=== PATIENT | female | born 1990 | race Caucasian/White ===

== ENCOUNTER 2021-04-04 06:32 | Inpatient (IN) | payer SELFPAY ==
[2021-04-04] MEDS ORDERED: Acetaminophen 325 MG Tab PO PRN ×2 (07:44→18:43)
[2021-04-04] MEDS ORDERED: Sodium Chloride 0.9% 10 ML Syringe FLUSH PRN (07:44)
[2021-04-04] MEDS ORDERED: Nalbuphine 10 MG/1 ML Vial IVPUSH PRN (07:44)
[2021-04-04] MEDS ORDERED: Ondansetron 4 MG/2 ML SDV IVPUSH PRN (07:44)
[2021-04-04] MEDS ORDERED: Oxytocin/Lactated Ringers 10 UNIT/1,000 ML BAG IV SCH ×3 (07:45→18:43)
--- NOTE | 2021-04-04 08:09 | PCM.PREANE ---
Preanesthetic Assessment - Procedure Proposed Procedure: Labor epidural - Anesthesia/Transfusion/Family Hx Anesthesia History: Prior Anesthesia Without Reaction Family History of Anesthesia Reaction: No Transfusion History: No Prior Transfusion(s) Intubation History: Unknown - Review of Systems General: No Symptoms Pulmonary: No Symptoms Cardiovascular: No Symptoms Gastrointestinal: Abdominal Pain (uterine contractions) Neurological: No Symptoms Other: Reports: None - Physical Assessment NPO Status Date: 04/04/21 NPO Status Time: 07:00 Vital Signs: BP 113/73 HR 91 RR 16 97.3 98% RA Height: 1.6 m Weight: 80.739 kg ASA Class: 2 Mental Status: Alert & Oriented x3 Airway Class: Mallampati = 2 Dentition: Reports: Normal Dentition Thyro-Mental Finger Breadths: 3 Mouth Opening Finger Breadths: 3 ROM/Head Extension: Full Lungs: Clear to Auscultation, Normal Respiratory Effort Cardiovascular: Regular Rate, Regular Rhythm, No Murmurs - Allergies Allergies/Adverse Reactions: Allergies Allergy/AdvReac Type Severity Reaction Status Date / Time No Known Allergies Allergy Verified 04/04/21 06:39 - Acknowledgements Anesthesia Type Planned: Epidural Pt an Appropriate Candidate for the Planned Anesthesia: Yes Alternatives and Risks of Anesthesia Discussed w Pt/Guardian: Yes Pt/Guardian Understands and Agrees with Anesthesia Plan: Yes PreAnesthesia Questionnaire HEENT History: Reports: Impaired Vision Cardiovascular History: Reports: None Respiratory History: Reports: None Gastrointestinal History: Reports: GERD Genitourinary History: Reports: None 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: Musculoskeletal History: Reports: None Neurological History: Reports: None Psychiatric History: Reports: None Endocrine/Metabolic History: Reports: Diabetes, Type I Hematologic History: Reports: None Immunologic History: Reports: None Oncologic (Cancer) History: Reports: None Dermatologic History: Reports: None - Past Surgical History HEENT Surgical History: Reports: Oral Surgery - SUBSTANCE USE Tobacco Use Status *Q: Never Tobacco User Tobacco Use Within Last Twelve Months: No Second Hand Smoke Exposure: No Recreational Drug Use History: No - CURRENT (IN HOUSE) MEDS Current Meds: Current Medications Acetaminophen (Acetaminophen 325 Mg Tab) 650 mg PO Q4H PRN PRN Reason: Pain (Mild 1-3) and fever Lactated Ringer's (Ringers, Lactated) 1,000 mls @ 100 mls/hr IV ASDIRECTED ANEESH Oxytocin/Lactated Ringer's (Pitocin In Lr 10 Units/1,000 Ml) 10 unit in 1,000 mls @ 12 mls/hr IV TITRATE ANEESH; Protocol Oxytocin/Lactated Ringer's (Pitocin In Lr 10 Units/1,000 Ml) 10 unit in 1,000 mls @ 100 mls/hr IV .CONTINUOUS ANEESH; Protocol Nalbuphine HCl (Nalbuphine 10 Mg/1 Ml Vial) 10 mg IVPUSH Q2H PRN PRN Reason: Pain Ondansetron HCl (Ondansetron 4 Mg/2 Ml Sdv) 4 mg IVPUSH Q4H PRN PRN Reason: Nausea/Vomiting Sodium Chloride (Sodium Chloride 0.9% 10 Ml Syringe) 10 ml FLUSH ASDIRECTED PRN PRN Reason: Keep Vein Open
[2021-04-04] MEDS ORDERED: ePHEDrine 50 MG/ML SDV IVPUSH PRN (08:15)
[2021-04-04] MEDS ORDERED: fentaNYL 100 MCG/2 ML SDV EPIDUR PRN (08:15)
[2021-04-04] MEDS ORDERED: diphenhydrAMINE 50 MG/ML SDV IVPUSH PRN (08:15)
[2021-04-04] MEDS ORDERED: Bupivacaine/fentaNYL/NS 100 ML Bag EPIDUR PRN (08:15)
[2021-04-04] MEDS: Lactated Ringers 1,000 ML IV SCH ×4 (08:19→12:30)
--- NOTE | 2021-04-04 10:19 | PCM.LDHP ---
L&D History of Present Illness - General Date of Service: 04/04/21 Admit Problem/Dx: Patient Status Order with Admit Dx/Problem 04/04/21 06:38 Patient Status [ADT] Routine 04/04/21 07:45 Patient Status [ADT] Routine Admission Diagnosis/Problem Admission Diagnosis/Problem Source of Information: Patient History Limitations: Reports: No Limitations - History of Present Illness Introduction:: Daria Vargas is a 30-year-old at 40 weeks 5 days (JEREMIAH 03/30/2021) by LMP consistent with anatomy ultrasound who presents with uterine contractions. She reports that she started having contractions at around 2 AM that were about 10 minutes apart and over time they became closer and closer together until at around 6 AM they were about 5 minutes apart. She came into labor and delivery at that time. She states that during the contractions she would have a small amount of vaginal bleeding but no significant bright red bleeding. She denies any leaking of fluid. She reports good movement. Timing/Duration: Reports: gradual onset (Starting at 2 AM), intermittent (Contractions every 5 minutes), getting worse (With more frequent and increased intensity of the contractions throughout the morning) Location, : Reports: Lower back, Pelvic Quality: Reports: Pressure, Throbbing Severity: Severe Pain Score: 8 Worsens with: Reports: None Associated Symptoms: Reports: vaginal bleeding, mild amount. Denies: vaginal discharge, vaginal fluid Present Illness Comments:: Daria Vargas is a 30-year-old at 40 weeks 5 days (JEREMIAH 03/30/2021) by LMP consistent with anatomy ultrasound who presents with uterine contractions and active labor. She has had routine care with Dr. Rain starting at 10 weeks gestational age. Her has been overall uncomplicated. She received Tdap vaccine on 01/04/2021. She received the COVID-19 vaccine on 12-18 and 12/17/2020. 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 Blood type: O+ Antibody screen: Negative First trimester hematocrit/hemoglobin: 39.6%/13.3 on 09/07/2020 Platelets: 293 on 09/07/2020 Rubella status: Immune Hepatitis B surface antigen: Negative RPR: Negative Hepatitis C: Negative HIV: Negative Gonorrhea: Negative Chlamydia: Negative Genetic testing: Normal NIPS genetic screening One hour glucose tolerance test: 85 Second trimester hematocrit/hemoglobin: 38.4%/13.0 on 01/04/2021 Platelets: 227 on 01/04/2021 GBS status: Negative - Related Data Allergies/Adverse Reactions: Allergies Allergy/AdvReac Type Severity Reaction Status Date / Time No Known Allergies Allergy Verified 04/04/21 06:39 Home Medications: Home Meds No122/Iron/Folic Acid [ Multi Tablet] 1 tab PO DAILY 04/04/21 [History] Past Medical History HEENT History: Reports: Impaired Vision Cardiovascular History: Reports: None Respiratory History: Reports: None Gastrointestinal History: Reports: GERD Genitourinary History: Reports: None 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 Para: 0 Musculoskeletal History: Reports: None Neurological History: Reports: None Psychiatric History: Reports: None Endocrine/Metabolic History: Reports: None Hematologic History: Reports: None Immunologic History: Reports: None Oncologic (Cancer) History: Reports: None Dermatologic History: Reports: None - Past Surgical History HEENT Surgical History: Reports: Oral Surgery (wisdom teeth extraction) Social & Family History - Family History Family Medical History: No Pertinent Family History - Tobacco Use Tobacco Use Status *Q: Never Tobacco User Second Hand Smoke Exposure: No - Tobacco Core Measures Tobacco Use/Smoking Within Last 30 Days: No Smokeless Tobacco Use in Last 30 Days: No - Caffeine Use Caffeine Use: Reports: None - Alcohol Use Alcohol Use History: No - Recreational Drug Use Recreational Drug Use: No - Living Situation & Occupation Living situation: Reports: , with Spouse H&P Review of Systems - Review of Systems: Review Of Systems: See Below General: Denies: Fever, Chills, Malaise, Weakness HEENT: Reports: Glasses. Denies: Headaches, Rhinitis, Post Nasal Drip, Sinus Congestion, Sore Throat, Visual Changes Pulmonary: Denies: Shortness of Breath, Wheezing, Pleuritic Chest Pain, Cough Cardiovascular: Denies: Chest Pain, Palpitations, Dyspnea on Exertion, Orthopnea Gastrointestinal: Denies: Abdominal Pain, Constipation, Diarrhea, Nausea, Vomiting Genitourinary: Denies: Dysuria, Frequency, Burning, Pain, Urgency Musculoskeletal: Reports: Back Pain (and hip pain of ) Skin: Denies: Rash, Lesions Psychiatric: Denies: Depression, Anxiety Neurological: Denies: Headache L&D Exam - Exam Exam: See Below - Vital Signs Vital Signs: Last Vital Signs Temp 36.3 C 04/04/21 06:38 Pulse 91 04/04/21 06:38 Resp 16 04/04/21 06:38 BP 113/73 04/04/21 06:38 Pulse Ox 100 04/04/21 06:38 Weight: 80.739 kg - OB Specific Contraction Duration (sec): 60-75 Contraction Frequency (min): 3-5 Contraction Intensity: Strong Movement: Active Heart Tones: Present Heart Tones per Min: 125 (+15 x 15 accelerations, no decelerations) Heart Rate (FHR) Variability: Moderate (6-25 bpm) Presentation: Vertex Estimated Weight: 7.5-8 lbs by Isacc - Bueno Score Bueno Score Cervix Position: Anterior Bueno Score Consistency: Soft Bueno Score Effacement: >80% (100%) Bueno Score Dilation: > 5 cm (8-9 cm) Bueno Score Infant's Station: +1, +2 (+2) Bueno Score Total: 13 - Exam General: Alert, Oriented HEENT: Conjunctiva Clear, EOMI Neck: Supple, Trachea Midline Lungs: Clear to Auscultation, Normal Respiratory Effort Cardiovascular: Regular Rate, Regular Rhythm GI/Abdominal Exam: Soft, Non-Tender, No Distention, Other (Gravid). No: Guarding, Rigid, Rebound Genitourinary: Normal external exam, Other (Artificial rupture of membranes with small amount of clear fluid) Extremities: Normal Inspection, No Pedal Edema Skin: Warm, Dry, Intact Psychiatric: Alert, Normal Affect, Normal Mood - Patient Data Lab Results Last 24 hrs: Laboratory Results - last 24 hr 04/04/21 04/04/21 Range/Units 07:12 07:12 WBC 12.63 H (3.98-10.04) K/mm3 RBC 4.28 (3.98-5.22) M/mm3 Hgb 12.6 (11.2-15.7) gm/dl Hct 37.9 (34.1-44.9) % MCV 88.6 (79.4-94.8) fl MCH 29.4 (25.6-32.2) pg MCHC 33.2 (32.2-35.5) g/dl RDW Std Deviation 46.3 (36.4-46.3) fL Plt Count 221 (182-369) K/mm3 MPV 9.7 (9.4-12.3) fl Neut % (Auto) 84.7 H (34.0-71.1) % Lymph % (Auto) 8.4 L (19.3-51.7) % [place] % (Auto) 5.8 (4.7-12.5) % Eos % (Auto) 0.1 L (0.7-5.8) Baso % (Auto) 0.2 (0.1-1.2) % Neut # (Auto) 10.71 H (1.56-6.13) K/mm3 Lymph # (Auto) 1.06 L (1.18-3.74) K/mm3 [place] # (Auto) 0.73 H (0.24-0.36) K/mm3 Eos # (Auto) 0.01 L (0.04-0.36) K/mm3 Baso # (Auto) 0.02 (0.01-0.08) K/mm3 SARS-CoV-2 RNA (MAIKOL) Negative (NEGATIVE) Result Diagrams: 04/04/21 07:12 - Problem List (1) 40 weeks gestation of SNOMED Code(s): 23812275 ICD Code: Z3A.40 - 40 WEEKS GESTATION OF Status: Acute Current Visit: Yes Problem List Initiated/Reviewed/Updated: Yes Orders Last 24hrs: Active Orders 24 hr Category Date Time Status Patient Status [ADT] Routine ADT 04/04/21 07:45 Active Activity as Tolerated [RC] PFP Care 04/04/21 07:45 Active Communication Order [RC] ASDIRECTED Care 04/04/21 07:45 Active Heart Tones [RC] ASDIRECTED Care 04/04/21 07:45 Active Notify Provider [RC] ASDIRECTED Care 04/04/21 08:15 Active Notify Provider [RC] PFP Care 04/04/21 07:45 Active Notify Provider [RC] PRN Care 04/04/21 07:45 Active Peripheral IV Care [RC] . DIRECTED Care 04/04/21 07:45 Active Pump Management, Intrathecal [RC] ASDIRECTED Care 04/04/21 07:46 Active Urinary Catheter Assessment [RC] ASDIRECTED Care 04/04/21 07:44 Active Vital Signs [RC] PER UNIT ROUTINE Care 04/04/21 06:38 Active Regular Diet [DIET] Diet 04/04/21 Breakfast Active RAPID PLASMA REAGIN,RPR [CHEM] Routine Lab 04/04/21 07:12 Received Acetaminophen [TylenoL] Med 04/04/21 07:44 Active 650 mg PO Q4H PRN Bupivacaine/fentaNYL/NS [fentaNYL/Bupivacaine/NS 2 MCG- Med 04/04/21 08:15 Active 0.125% 100 ML] 100 ml EPIDUR ASDIRECTED PRN Lactated Ringers [Ringers, Lactated] 1,000 ml Med 04/04/21 07:45 Active IV ASDIRECTED Nalbuphine [Nubain] Med 04/04/21 07:44 Active 10 mg IVPUSH Q2H PRN Ondansetron [Zofran] Med 04/04/21 07:44 Active 4 mg IVPUSH Q4H PRN Oxytocin/Lactated Ringers [Pitocin in LR 10 Units/1,000 Med 04/04/21 07:45 Active ML] 10 unit in 1,000 ml IV .CONTINUOUS Oxytocin/Lactated Ringers [Pitocin in LR 10 Units/1,000 Med 04/04/21 07:45 Active ML] 10 unit in 1,000 ml IV TITRATE Sodium Chloride 0.9% [Saline Flush] Med 04/04/21 07:44 Active 10 ml FLUSH ASDIRECTED PRN diphenhydrAMINE [Benadryl] Med 04/04/21 08:15 Active 25 mg IVPUSH Q6H PRN ePHEDrine [ePHEDrine sulfate] Med 04/04/21 08:15 Active 5 mg IVPUSH ASDIRECTED PRN fentaNYL [Sublimaze] Med 04/04/21 08:15 Active 100 mcg EPIDUR Q3H PRN Electronic Heart Tones Ext w TOCO [WOMSER] Oth 04/04/21 07:45 Ordered Routine Electronic Heart Tones Internal [WOMSER] Per Unit Oth 04/04/21 07:45 Ordered Routine Peripheral IV Insertion Adult [OM.PC] Routine Oth 04/04/21 07:45 Ordered Resuscitation Status Routine Resus Stat 04/04/21 06:38 Ordered Medication Orders Acetaminophen (Acetaminophen 325 Mg Tab) 650 mg PO Q4H PRN PRN Reason: Pain (Mild 1-3) and fever Diphenhydramine HCl (Diphenhydramine 50 Mg/Ml Sdv) 25 mg IVPUSH Q6H PRN PRN Reason: pruritis Ephedrine Sulfate (Ephedrine 50 Mg/Ml Sdv) 5 mg IVPUSH ASDIRECTED PRN PRN Reason: Hypotension Fentanyl (Fentanyl 100 Mcg/2 Ml Sdv) 100 mcg EPIDUR Q3H PRN PRN Reason: Pain Last Admin: 04/04/21 08:23 Dose: 100 mcg Documented by: SOFIA Fentanyl/Bupivacaine HCl (Bupivacaine/Fentanyl/Ns 100 Ml Bag) 100 ml EPIDUR ASDIRECTED PRN PRN Reason: Pain Last Admin: 04/04/21 08:23 Dose: 100 ml Documented by: SOFIA Lactated Ringer's (Ringers, Lactated) 1,000 mls @ 100 mls/hr IV ASDIRECTED ANEESH Last Admin: 04/04/21 08:24 Dose: 100 mls/hr Documented by: Infusion: 04/04/21 08:24 Dose: 100 mls/hr Documented by: Admin: 04/04/21 08:19 Dose: 100 mls/hr Documented by: SOFIA Oxytocin/Lactated Ringer's (Pitocin In Lr 10 Units/1,000 Ml) 10 unit in 1,000 mls @ 12 mls/hr IV TITRATE ANEESH; Protocol Oxytocin/Lactated Ringer's (Pitocin In Lr 10 Units/1,000 Ml) 10 unit in 1,000 mls @ 100 mls/hr IV .CONTINUOUS ANEESH; Protocol Nalbuphine HCl (Nalbuphine 10 Mg/1 Ml Vial) 10 mg IVPUSH Q2H PRN PRN Reason: Pain Ondansetron HCl (Ondansetron 4 Mg/2 Ml Sdv) 4 mg IVPUSH Q4H PRN PRN Reason: Nausea/Vomiting Sodium Chloride (Sodium Chloride 0.9% 10 Ml Syringe) 10 ml FLUSH ASDIRECTED PRN PRN Reason: Keep Vein Open Assessment/Plan Comment:: Daria Vargas is a 30-year-old G1, P0 at 40 weeks 5 days (JEREMIAH 03/30/2021) with active labor Patient had artificial rupture of membranes with [place] with return of small amount of clear fluid. Mother and infant tolerated procedure without difficulty. Refer to observation for spontaneous labor with cervical change Continuous monitoring Place IV and have Lactated Ringer's at 125 ml/hr May have small amounts of regular diet Activity as tolerated Patient with epidural in place and providing good anesthesia Plans to breast-feed after delivery Anticipate vaginal delivery unless otherwise indicated Pawel Schmidt MD 10:38 AM 04/04/2021
[2021-04-04] MEDS ORDERED: Benzocaine/Menthol 20%-0.5% Spray 78 GM Cannister TOP PRN (18:43)
[2021-04-04] MEDS ORDERED: Magnesium Hydroxide 400 MG/5 ML Susp 30 ML Cup PO PRN (18:43)
[2021-04-04] MEDS ORDERED: Hydrocortisone Acetate 25 MG Supp RECTAL PRN (18:43)
[2021-04-04] MEDS ORDERED: Bupivacaine 0.25% 10 ML SDV ONE (19:00)
--- NOTE | 2021-04-04 19:21 | PCM.DEL ---
L & D Note - General Info Date of Service: 04/04/21 Mother's Due Date: 03/30/21 - Delivery Note Labor: Spontaneous, Augmented by ARM, Augmented by Oxytocin Infant Delivery Method: Spontaneous Vaginal Delivery-Single Presentation: Left Occiput Anterior (LISA) Nuchal Cord: None Prep: Povidone-Iodine (Betadine Anesthesia Type: Epidural Amniotic Fluid Description: Clear Episiotomy Type: None Laceration: 3rd Degree (partial, midline, repaired with 2 figure of eight sutures with 2-0 Vicryl Rapide and 3-0 Vicryl), Labial (left medial labia minora, repaired with 4-0 Vicryl) Suture type: Vicryl Suture size: 3-0 Placenta: Intact, Spontaneous Cord: 3 Vessels Estimated Blood Loss: 500 Resuscitation Needed: Yes : Suctioned, Bulb Syringe, Stimulated, Warmed, [place] Used, Warmer Used Provider: Jennifer Rain Score 1 min: 8 Score 5 min: 9 Second Stage Interventions: Reports: Pushing Effectively, Pushing, Right Side, Pushing, Squatting, Pushing, Stirrups/Leg Supports Delivery Comments (Free Text/Narrative):: Stage I: Daria Vargas was admitted for active labor. On admission her cervix was dilated to 7 cm. She was GBS negative. She was given an epidural for anesthesia. She had artificial rupture of membranes with small amount of clear fluid. She was started on Pitocin for augmentation of labor after her contractions had slowed significantly. She progressed to complete and pushing. Stage II: On 04/04/2021 she had a normal vaginal delivery of a live female at 17:22. Apgars of 8 & 9. Weight of 4210 g (9 lbs 4.5 oz). Length of 21.5 inches. There was no nuchal cord. was delivered in LISA position. The cord was doubly clamped and cut by father the at approximately 60 seconds of life. Infant was placed on mother's abdomen and then taken to the warmer for further resuscitation. Stage III: She had a spontaneous delivery of an intact placenta in [place] presentation. Three vessel cord. She was given pitocin and fundal massage. She had a partial third-degree midline perineal laceration. This was repaired with 2 [id number] sutures using 2-0 Vicryl Rapide in the superior and anterior portions of the external anal sphincter muscle capsule. The remainder of the laceration was repaired with 3-0 Vicryl. She had a left medial labia minora laceration that was repaired with 4-0 Vicryl. Mom and baby were stable to recovery. EBL of 500 mL. Pawel Schmidt MD 7:21 PM 04/04/2021 - General Info Date of Service: 04/04/21 - Patient Data Vitals - Most Recent: Last Vital Signs Temp 36.3 C 04/04/21 06:38 Pulse 91 04/04/21 06:38 Resp 16 04/04/21 06:38 BP 113/73 04/04/21 06:38 Pulse Ox 100 04/04/21 06:38 Weight - Most Recent: 80.739 kg I&O - Last 24 Hours: Intake & Output 04/04/21 04/04/21 04/04/21 06:59 14:59 22:59 Intake Total 1000 3000 Balance 1000 3000 Lab Results Last 24 Hours: Laboratory Results - last 24 hr 04/04/21 04/04/21 Range/Units 07:12 07:12 WBC 12.63 H (3.98-10.04) K/mm3 RBC 4.28 (3.98-5.22) M/mm3 Hgb 12.6 (11.2-15.7) gm/dl Hct 37.9 (34.1-44.9) % MCV 88.6 (79.4-94.8) fl MCH 29.4 (25.6-32.2) pg MCHC 33.2 (32.2-35.5) g/dl RDW Std Deviation 46.3 (36.4-46.3) fL Plt Count 221 (182-369) K/mm3 MPV 9.7 (9.4-12.3) fl Neut % (Auto) 84.7 H (34.0-71.1) % Lymph % (Auto) 8.4 L (19.3-51.7) % [place] % (Auto) 5.8 (4.7-12.5) % Eos % (Auto) 0.1 L (0.7-5.8) Baso % (Auto) 0.2 (0.1-1.2) % Neut # (Auto) 10.71 H (1.56-6.13) K/mm3 Lymph # (Auto) 1.06 L (1.18-3.74) K/mm3 [place] # (Auto) 0.73 H (0.24-0.36) K/mm3 Eos # (Auto) 0.01 L (0.04-0.36) K/mm3 Baso # (Auto) 0.02 (0.01-0.08) K/mm3 SARS-CoV-2 RNA (MAIKOL) Negative (NEGATIVE) Med Orders - Current: Current Medications Acetaminophen (Acetaminophen 325 Mg Tab) 650 mg PO Q6H PRN PRN Reason: mild pain or fever Benzocaine/Menthol (Benzocaine/Menthol 20%-0.5% Saline 78 Gm Cannister) 0 gm TOP ASDIRECTED PRN PRN Reason: Perineal Comfort Measure Docusate Sodium (Docusate Sodium 100 Mg Cap) 100 mg PO BID ANEESH Hydrocortisone Acetate (Hydrocortisone Acetate 25 Mg Supp) 25 mg RECTAL BID PRN PRN Reason: Hemorrhoid pain Oxytocin/Lactated Ringer's (Pitocin In Lr 10 Units/1,000 Ml) 10 unit in 1,000 mls @ 100 mls/hr IV TITRATE ANEESH; Protocol Ibuprofen (Ibuprofen 600 Mg Tab) 600 mg PO Q6H PRN PRN Reason: Mild pain or fever Magnesium Hydroxide (Magnesium Hydroxide 400 Mg/5 Ml Susp 30 Ml Cup) 30 ml PO BEDTIME PRN PRN Reason: Constipation Prenat Multivit/[place]/Iron/Folic Ac ( Multivitamin With Calcium/Folic Acid/Iron Tab) 1 each PO DAILY [facility] Witch Benita (Witch Benita Medicated Pads 40/Jar) 1 pad TOP ASDIRECTED PRN PRN Reason: Perineal Comfort Measure Discontinued Medications Acetaminophen (Acetaminophen 325 Mg Tab) 650 mg PO Q4H PRN PRN Reason: Pain (Mild 1-3) and fever Diphenhydramine HCl (Diphenhydramine 50 Mg/Ml Sdv) 25 mg IVPUSH Q6H PRN PRN Reason: pruritis Ephedrine Sulfate (Ephedrine 50 Mg/Ml Sdv) 5 mg IVPUSH ASDIRECTED PRN PRN Reason: Hypotension Fentanyl (Fentanyl 100 Mcg/2 Ml Sdv) 100 mcg EPIDUR Q3H PRN PRN Reason: Pain Last Admin: 04/04/21 08:23 Dose: 100 mcg Documented by: Fentanyl/Bupivacaine HCl (Bupivacaine/Fentanyl/Ns 100 Ml Bag) 100 ml EPIDUR ASDIRECTED PRN PRN Reason: Pain Last Admin: 04/04/21 08:23 Dose: 100 ml Documented by: Lactated Ringer's (Ringers, Lactated) 1,000 mls @ 100 mls/hr IV ASDIRECTED ANEESH Last Admin: 04/04/21 12:30 Dose: 100 mls/hr Documented by: Oxytocin/Lactated Ringer's (Pitocin In Lr 10 Units/1,000 Ml) 10 unit in 1,000 mls @ 12 mls/hr IV TITRATE ANEESH; Protocol Last Admin: 04/04/21 12:26 Dose: 2 munits/min, 12 mls/hr Documented by: Oxytocin/Lactated Ringer's (Pitocin In Lr 10 Units/1,000 Ml) 10 unit in 1,000 mls @ 100 mls/hr IV .CONTINUOUS ANEESH; Protocol Nalbuphine HCl (Nalbuphine 10 Mg/1 Ml Vial) 10 mg IVPUSH Q2H PRN PRN Reason: Pain Ondansetron HCl (Ondansetron 4 Mg/2 Ml Sdv) 4 mg IVPUSH Q4H PRN PRN Reason: Nausea/Vomiting Sodium Chloride (Sodium Chloride 0.9% 10 Ml Syringe) 10 ml FLUSH ASDIRECTED PRN PRN Reason: Keep Vein Open - Exam Urinary Catheter Total Time: 0Days 0Hours - Problem List & Annotations (1) 40 weeks gestation of SNOMED Code(s): 14856024 Code(s): Z3A.40 - 40 WEEKS GESTATION OF Status: Acute Current Visit: Yes (2) Vaginal delivery SNOMED Code(s): 452560995 Code(s): O80 - ENCOUNTER FOR FULL-TERM UNCOMPLICATED DELIVERY Status: Acute Current Visit: Yes (3) Third degree laceration of perineum, type 3a SNOMED Code(s): 047469291 Code(s): O70.21 - THIRD DEGREE PERINEAL LACERATION DURING DELIVERY, IIIA Status: Acute Current Visit: Yes (4) Obstetric labial laceration, delivered, current hospitalization SNOMED Code(s): 268015695, 299829762, 438222379 Code(s): O70.0 - FIRST DEGREE PERINEAL LACERATION DURING DELIVERY Status: Acute Current Visit: Yes - Problem List Review Problem List Initiated/Reviewed/Updated: Yes - My Orders Last 24 Hours: My Active Orders 04/04/21 06:38 Resuscitation Status Routine 04/04/21 07:12 RAPID PLASMA REAGIN,RPR [CHEM] Routine 04/04/21 Dinner Regular Diet [DIET] 04/04/21 18:43 Acetaminophen [TylenoL] 650 mg PO Q6H PRN Benzocaine/Menthol [Dermoplast Pain Relief 20%-0.5% Saline] See Dose Instructions TOP ASDIRECTED PRN Hydrocortisone Acetate [Anucort-HC] 25 mg RECTAL BID PRN Ibuprofen [Motrin] 600 mg PO Q6H PRN Magnesium Hydroxide [Milk of Magnesia] 30 ml PO BEDTIME PRN Oxytocin/Lactated Ringers [Pitocin in LR 10 Units/1,000 ML] 10 unit in 1,000 ml IV TITRATE witch Benita [Tucks] 1 pad TOP ASDIRECTED PRN Heat Therapy [OM.PC] PRN 04/04/21 18:43 Patient Status [ADT] Routine Activity as Tolerated [RC] PER UNIT ROUTINE May Shower [RC] ASDIRECTED Notify Provider Vital Signs [RC] ASDIRECTED Vital Signs [RC] ,,, Assess Lochia [WOMSER] Per Unit Routine Assess Uterine Involution [WOMSER] Per Unit Routine Breast Pump [WOMSER] Per Unit Routine Ice Therapy [OM.PC] Per Unit Routine Medication Administration Instruction [OM.PC] Routine Perineal Care [OM.PC] Per Unit Routine Peripheral IV Discontinue [OM.PC] Routine Sitz Bath [OM.PC] Per Unit Routine 04/04/21 21:00 Docusate Sodium [Colace] 100 mg PO BID 04/05/21 05:11 CBC W/O DIFF,HEMOGRAM [HEME] AM 04/05/21 09:00 Vit with Ca/FA/Iron [ Plus Iron] 1 each PO DAILY 04/05/21 18:43 Heat Therapy [OM.PC] PRN - Plan Plan:: Daria Vargas is a 30-year-old now -0-0-1 female status post complicated by partial third-degree laceration, PPD #0 Admit to inpatient following normal spontaneous vaginal delivery Continue Pitocin per unit protocol following delivery of placenta and lactated Ringer's until tolerating regular diet Regular diet Vitals per unit routine Ibuprofen and Tylenol for pain control Assist with breast-feeding as needed Continue to monitor lochia Recommend for patient to use Colace 100 mg twice daily to ensure that she has soft stools to reduce risk of injury to the muscle capsule repair from the third-degree laceration Anticipate discharge home on day #2 Pawel Schmidt MD 7:21 PM 04/04/2021
[2021-04-04] MEDS: Ibuprofen 600 MG Tab PO PRN (19:35)
[2021-04-04] MEDS: Witch Hazel Medicated Pads 40/Jar TOP PRN (19:35)
[2021-04-04] MEDS: Docusate Sodium 100 MG Cap PO SCH (21:17)
[2021-04-05] MEDS: Ibuprofen 600 MG Tab PO PRN ×2 (03:23→17:23)
--- NOTE | 2021-04-05 08:06 | PCM48HPAN ---
Post Anesthesia Note - EVALUATION WITHIN 48HRS OF ANESTHETIC Vital Signs in Normal Range: Yes Patient Participated in Evaluation: Yes Respiratory Function Stable: Yes Airway Patent: Yes Cardiovascular Function Stable: Yes Hydration Status Stable: Yes Pain Control Satisfactory: Yes Nausea and Vomiting Control Satisfactory: Yes Mental Status Recovered: Yes Vital Signs: Last Vital Signs Temp 36.7 C 04/05/21 03:18 Pulse 85 04/05/21 03:18 Resp 14 04/05/21 03:18 BP 107/61 04/05/21 03:18 Pulse Ox 96 04/05/21 03:18
[2021-04-05] MEDS: Prenatal Multivitamin with Calcium/Folic Acid/Iron Tab PO SCH (08:09)
[2021-04-05] MEDS: Docusate Sodium 100 MG Cap PO SCH ×2 (08:09→23:00)
--- NOTE | 2021-04-05 12:16 | PCM.SN.2 ---
- Free Text/Narrative Note: note: Patient is doing well in the period. Minimal lochia, voiding well, ambulated without problems. Nursing without concerns. Patient is afebrile, vital signs are stable Abdomen is flat, soft, uterus is below the umbilicus and is firm and nontender. Legs are nontender. Assessment: recovery going well. Plan: Routine care. Patient be discharged home within the next 24-48 hours.
[2021-04-06] MEDS: Ibuprofen 600 MG Tab PO PRN (06:07)
[2021-04-06] MEDS: Docusate Sodium 100 MG Cap PO SCH (08:13)
[2021-04-06] MEDS: Prenatal Multivitamin with Calcium/Folic Acid/Iron Tab PO SCH (08:13)
--- NOTE | 2021-04-06 11:14 | PCM.DCSUM1 ---
Discharge Summary - Hospital Course Diagnosis: Stroke: No - Discharge Data Discharge Date: 04/06/21 Discharge Disposition: Home, Self-Care 01 Condition: Good - Referral to Home Health Primary Care Physician: Jennifer Rain MD - Patient Summary/Data Hospital Course: Unremarkable labor, delivery and course. - Patient Instructions Diet: Heart Healthy Diet Activity, Other: pelvic rest Driving: May Drive Today Showering/Bathing: May Shower Notify Provider of: Fever, Increased Pain, Swelling and Redness, Drainage, Nausea and/or Vomiting - Discharge Plan *PRESCRIPTION DRUG MONITORING PROGRAM REVIEWED*: No *COPY OF PRESCRIPTION DRUG MONITORING REPORT IN PATIENT MIKE: No Home Medications: Home Meds No122/Iron/Folic Acid [ Multi Tablet] 1 tab PO DAILY 04/04/21 [History] Referrals: Jennifer Rain MD [Primary Care Provider] - - Discharge Summary/Plan Comment DC Time >30 min.: No Total # of Minutes for Discharge Time: 15 - Patient Data Vitals - Most Recent: Last Vital Signs Temp 36.3 C 04/06/21 03:15 Pulse 79 04/06/21 03:15 Resp 17 04/06/21 03:15 BP 113/75 04/06/21 03:15 Pulse Ox 96 04/06/21 03:15 Weight - Most Recent: 80.739 kg Med Orders - Current: Current Medications Acetaminophen (Acetaminophen 325 Mg Tab) 650 mg PO Q6H PRN PRN Reason: mild pain or fever Benzocaine/Menthol (Benzocaine/Menthol 20%-0.5% [place] 78 Gm Cannister) 0 gm TOP ASDIRECTED PRN PRN Reason: Perineal Comfort Measure Last Admin: 04/04/21 19:35 Dose: 1 can Documented by: Docusate Sodium (Docusate Sodium 100 Mg Cap) 100 mg PO BID ANEESH Last Admin: 04/06/21 08:13 Dose: 100 mg Documented by: Hydrocortisone Acetate (Hydrocortisone Acetate 25 Mg Supp) 25 mg RECTAL BID PRN PRN Reason: Hemorrhoid pain Oxytocin/Lactated Ringer's (Pitocin In Lr 10 Units/1,000 Ml) 10 unit in 1,000 mls @ 100 mls/hr IV TITRATE ANEESH; Protocol Ibuprofen (Ibuprofen 600 Mg Tab) 600 mg PO Q6H PRN PRN Reason: Mild pain or fever Last Admin: 04/06/21 06:07 Dose: 600 mg Documented by: Magnesium Hydroxide (Magnesium Hydroxide 400 Mg/5 Ml Susp 30 Ml Cup) 30 ml PO BEDTIME PRN PRN Reason: Constipation Prenat Multivit/Jones/Iron/Folic Ac ( Multivitamin With Calcium/Folic Acid/Iron Tab) 1 each PO DAILY ANEESH Last Admin: 04/06/21 08:13 Dose: 1 each Documented by: Kandis Joy (Kandis Joy Medicated Pads 40/Jar) 1 pad TOP ASDIRECTED PRN PRN Reason: Perineal Comfort Measure Last Admin: 04/04/21 19:35 Dose: 1 tub Documented by: Discontinued Medications Acetaminophen (Acetaminophen 325 Mg Tab) 650 mg PO Q4H PRN PRN Reason: Pain (Mild 1-3) and fever Bupivacaine HCl (Bupivacaine 0.25% 10 Ml Sdv) 10 ml .ROUTE .[employer] ONE Stop: 04/04/21 19:01 Diphenhydramine HCl (Diphenhydramine 50 Mg/Ml Sdv) 25 mg IVPUSH Q6H PRN PRN Reason: pruritis Ephedrine Sulfate (Ephedrine 50 Mg/Ml Sdv) 5 mg IVPUSH ASDIRECTED PRN PRN Reason: Hypotension Fentanyl (Fentanyl 100 Mcg/2 Ml Sdv) 100 mcg EPIDUR Q3H PRN PRN Reason: Pain Last Admin: 04/04/21 08:23 Dose: 100 mcg Documented by: Fentanyl/Bupivacaine HCl (Bupivacaine/Fentanyl/Ns 100 Ml Bag) 100 ml EPIDUR ASDIRECTED PRN PRN Reason: Pain Last Admin: 04/04/21 08:23 Dose: 100 ml Documented by: Lactated Ringer's (Ringers, Lactated) 1,000 mls @ 100 mls/hr IV ASDIRECTED ANEESH Last Admin: 04/04/21 12:30 Dose: 100 mls/hr Documented by: Oxytocin/Lactated Ringer's (Pitocin In Lr 10 Units/1,000 Ml) 10 unit in 1,000 mls @ 12 mls/hr IV TITRATE ANEESH; Protocol Last Admin: 04/04/21 12:26 Dose: 2 munits/min, 12 mls/hr Documented by: Oxytocin/Lactated Ringer's (Pitocin In Lr 10 Units/1,000 Ml) 10 unit in 1,000 mls @ 100 mls/hr IV .CONTINUOUS ANEESH; Protocol Nalbuphine HCl (Nalbuphine 10 Mg/1 Ml Vial) 10 mg IVPUSH Q2H PRN PRN Reason: Pain Ondansetron HCl (Ondansetron 4 Mg/2 Ml Sdv) 4 mg IVPUSH Q4H PRN PRN Reason: Nausea/Vomiting Sodium Chloride (Sodium Chloride 0.9% 10 Ml Syringe) 10 ml FLUSH ASDIRECTED PRN PRN Reason: Keep Vein Open
[2021-04-06] MEDS: Witch Hazel Medicated Pads 40/Jar TOP PRN (12:01)
== END 2021-04-06 13:53 | disposition home or self-care (01) | DRG 768 ==
LOC: JD.OBCHECK 06:32 → JD.OB 06:36 → JD.OBCHECK 07:45 → OBSVTOIN 17:22 → JD.OB 17:23
PROVIDERS: ADMIT Obstetrics & Gynecology; ATTEND Obstetrics & Gynecology
PROC: 10E0XZZ Delivery of Products of Conception, External Approach (ICD-10-PCS; principal; 2021-04-04)
PROC: 0DQR0ZZ Repair Anal Sphincter, Open Approach (ICD-10-PCS; 2021-04-04)
PROC: 10907ZC Drainage of Amniotic Fluid, Therapeutic from Products of Conception, Via Natural or Artificial Opening (ICD-10-PCS; 2021-04-04)
PROC: 3E0R3BZ Introduction of Anesthetic Agent into Spinal Canal, Percutaneous Approach (ICD-10-PCS; 2021-04-04)
PROC: 00HU33Z Insertion of Infusion Device into Spinal Canal, Percutaneous Approach (ICD-10-PCS; 2021-04-04)
DX: O48.0 Post-term pregnancy (principal); Z37.0 Single live birth; O70.20 Third degree perineal laceration during delivery, unspecified; Z3A.40 40 weeks gestation of pregnancy; Z20.822 Contact with and (suspected) exposure to COVID-19
CPT/HCPCS: 01967; 36415; 51701; 51702; 59025; 59409; 85025; 85027; 86592; A9270-GY; J2590; J3010; J3490; J7120; U0002

== ENCOUNTER 2023-04-03 17:37 | Inpatient (IN) | payer BC ==
[~2023-04-03 17:37] MED LIST: Bupivacaine 0.25% 10 ML SDV ONE; Lidocaine 1% 10 ML MDV ONE
[2023-04-03] MEDS ORDERED: Nalbuphine HCl 10 MG/ 1ML Amp IVPUSH PRN (17:48)
[2023-04-03] MEDS ORDERED: Lidocaine 1% 50 ML MDV INJECT PRN (17:48)
[2023-04-03] MEDS ORDERED: Oxytocin/Lactated Ringers 30 UNIT/500 ML BAG IV SCH (18:00)
[2023-04-03] MEDS ORDERED: Lactated Ringers 1,000 ML IV SCH (18:00)
[2023-04-03 18:08] LABS: BASOPHILS PERCENT AUTO 0.3 % (0.0-1.0); EOSINOPHILS ABSOLUTE AUTO 0.1 K/mm3 (0.0-0.4); EOSINOPHILS PERCENT AUTO 0.4 % (0.0-6.0); HEMATOCRIT 38.8 % (37.0-47.0); HEMOGLOBIN 13.1 gm/dl (12.0-16.0); IMMATURE GRAN ABSOLUTE AUTO 0.15 K/mm3 (0.00-0.05); LYMPHOCYTES ABSOLUTE AUTO 1.5 K/mm3 (1.0-4.8); LYMPHOCYTES PERCENT AUTO 9.8 % (24.0-44.0); MEAN CORPUSCULAR HEMOGLOBIN 29.2 pg (28.0-32.0); MEAN CORPUSCULAR HGB CONC 33.8 g/dl (32.0-36.0); MEAN CORPUSCULAR VOLUME 86.6 fl (83.0-99.0); MEAN PLATELET VOLUME 9.8 fl (9.4-12.3); MONOCYTES PERCENT AUTO 6.2 % (0.0-8.0); NEUTROPHILS ABSOLUTE AUTO 12.8 K/mm3 (1.8-7.7); NEUTROPHILS PERCENT AUTO 82.3 % (41.0-71.0); PLATELET COUNT,PLT 195 K/mm3 (150-400); RED BLOOD CELL COUNT 4.48 M/mm3 (4.10-5.30); WHITE BLOOD CELL COUNT,WBC 15.58 K/mm3 (3.9-11.3)
[2023-04-03] MEDS ORDERED: fentaNYL 100 MCG/2 ML SDV EPIDUR PRN (18:10)
[2023-04-03] MEDS ORDERED: diphenhydrAMINE 50 MG/ML SDV IVPUSH PRN (18:10)
[2023-04-03] MEDS ORDERED: Bupivacaine/fentaNYL/NS 100 ML Bag EPIDUR PRN (18:10)
[2023-04-03] MEDS ORDERED: ePHEDrine 50 MG/ML SDV IVPUSH PRN (18:10)
[2023-04-03] MEDS ORDERED: Ondansetron 4 MG/2 ML SDV IVPUSH PRN (19:39)
[2023-04-03] MEDS ORDERED: Benzocaine/Menthol 20%-0.5% Spray 78 GM Cannister TOP PRN (22:21)
[2023-04-03] MEDS ORDERED: Magnesium Hydroxide 400 MG/5 ML Susp 30 ML Cup PO PRN (22:21)
[2023-04-03] MEDS ORDERED: Acetaminophen 325 MG Tab PO PRN (22:21)
[2023-04-03] MEDS ORDERED: Docusate Sodium 100 MG Cap PO PRN (22:21)
[2023-04-03] MEDS ORDERED: Witch Hazel Medicated Pads 40/Jar TOP PRN (22:21)
[2023-04-03] MEDS ORDERED: Hydrocortisone Acetate 25 MG Supp RECTAL PRN (22:21)
[2023-04-03] MEDS: Ibuprofen 600 MG Tab PO PRN (23:51)
[2023-04-04] MEDS: Ibuprofen 600 MG Tab PO PRN (08:19)
[2023-04-04] MEDS: Prenatal Multivitamin with Calcium/Folic Acid/Iron Tab PO SCH (08:19)
[2023-04-05] MEDS: Prenatal Multivitamin with Calcium/Folic Acid/Iron Tab PO SCH (09:40)
== END 2023-04-05 12:30 | disposition home or self-care (01) | DRG 560 ==
LOC: JD.OBCHECK 17:37 → JD.OB 17:42 → JD.OBCHECK 17:47 → JD.OB 17:48 → OBSVTOIN 21:03 → JD.OB 21:04
PROVIDERS: ADMIT Obstetrics & Gynecology; ATTEND Obstetrics & Gynecology
PROC: 10E0XZZ Delivery of Products of Conception, External Approach (ICD-10-PCS; principal; 2023-04-03)
PROC: 0KQM0ZZ Repair Perineum Muscle, Open Approach (ICD-10-PCS; 2023-04-03)
PROC: 3E0R3BZ Introduction of Anesthetic Agent into Spinal Canal, Percutaneous Approach (ICD-10-PCS; 2023-04-03)
PROC: 00HU33Z Insertion of Infusion Device into Spinal Canal, Percutaneous Approach (ICD-10-PCS; 2023-04-03)
PROC: 10907ZC Drainage of Amniotic Fluid, Therapeutic from Products of Conception, Via Natural or Artificial Opening (ICD-10-PCS; 2023-04-03)
DX: O48.0 Post-term pregnancy (principal); O77.0 Labor and delivery complicated by meconium in amniotic fluid; O70.1 Second degree perineal laceration during delivery; Z3A.40 40 weeks gestation of pregnancy; Z37.0 Single live birth
CPT/HCPCS: 36415; 51701; 59025; 59409; 85025; 86592; 86850; 86900; 86901; A9270-GY; J2405; J3010; J3490; J7120; J7999

== ENCOUNTER 2025-01-06 17:39 | Inpatient (IN) | payer BC ==
[~2025-01-06 17:39] MED LIST changes: -Bupivacaine 0.25% 10 ML SDV ONE; -Lidocaine 1% 10 ML MDV ONE; +ePHEDrine 50 MG/ML SDV ONE
[2025-01-06] MEDS ORDERED: Sodium Chloride 0.9% 10 ML Syringe FLUSH PRN (18:07)
[2025-01-06] MEDS ORDERED: Nalbuphine 10 MG/1 ML Vial IVPUSH PRN (18:07)
[2025-01-06] MEDS ORDERED: Ondansetron 4 MG/2 ML SDV IVPUSH PRN (18:07)
[2025-01-06] MEDS ORDERED: Oxytocin/0.9 % Sodium Chloride 30 UNIT/500 ML BAG IV SCH (18:15)
[2025-01-06] MEDS: Lactated Ringers 1,000 ML IV SCH (18:21)
[2025-01-06 18:25] LABS: BASOPHILS ABSOLUTE AUTO 0.0 K/mm3 (0.0-0.2); BASOPHILS PERCENT AUTO 0.4 % (0.0-1.0); EOSINOPHILS ABSOLUTE AUTO 0.0 K/mm3 (0.0-0.4); EOSINOPHILS PERCENT AUTO 0.2 % (0.0-6.0); IMMATURE GRAN ABSOLUTE AUTO 0.09 K/mm3 (0.00-0.05); IMMATURE GRAN PERCENT AUTO 0.9 % (0.0-0.4); LYMPHOCYTES ABSOLUTE AUTO 1.7 K/mm3 (1.0-4.8); LYMPHOCYTES PERCENT AUTO 17.0 % (24.0-44.0); MEAN PLATELET VOLUME 9.4 fl (9.4-12.3); MONOCYTES ABSOLUTE AUTO 0.6 K/mm3 (0.0-0.8); MONOCYTES PERCENT AUTO 6.1 % (0.0-8.0); NEUTROPHILS ABSOLUTE AUTO 7.4 K/mm3 (1.8-7.7); NEUTROPHILS PERCENT AUTO 75.4 % (41.0-71.0); NRBC ABSOLUTE 0.00 (0.00-0.02); NRBC PERCENT 0.0 % (0.0-0.2); PLATELET COUNT,PLT 240 K/mm3 (150-400); RED BLOOD CELL COUNT 4.99 M/mm3 (4.10-5.30); WHITE BLOOD CELL COUNT,WBC 9.77 K/mm3 (3.9-11.3)
[2025-01-06] MEDS ORDERED: diphenhydrAMINE 50 MG/ML SDV IVPUSH PRN (18:35)
[2025-01-06] MEDS ORDERED: ePHEDrine 50 MG/ML SDV IVPUSH PRN (18:35)
[2025-01-06] MEDS: Bupivacaine/fentaNYL/NS 100 ML Bag EPIDUR PRN (18:45)
[2025-01-06] MEDS: fentaNYL 100 MCG/2 ML SDV EPIDUR PRN (18:45)
[2025-01-06] MEDS: Oxytocin/0.9 % Sodium Chloride 30 UNIT/500 ML BAG IV SCH (19:24)
[2025-01-06] MEDS ORDERED: Sodium Chloride 0.9% 10 ML Syringe FLUSH SCH (21:00)
[2025-01-07] MEDS: Witch Hazel Medicated Pads 40/Jar TOP PRN (01:32)
[2025-01-07] MEDS: Benzocaine/Menthol 20%-0.5% Spray 78 GM Cannister TOP PRN (01:32)
[2025-01-07 07:08] LABS: MEAN PLATELET VOLUME 10.1 fl (9.4-12.3); NRBC ABSOLUTE 0.00 (0.00-0.02); NRBC PERCENT 0.0 % (0.0-0.2); PLATELET COUNT,PLT 187 K/mm3 (150-400); RED BLOOD CELL COUNT 3.79 M/mm3 (4.10-5.30); WHITE BLOOD CELL COUNT,WBC 11.92 K/mm3 (3.9-11.3)
== END 2025-01-08 10:00 | disposition home or self-care (01) | DRG 560 ==
LOC: JD.OBCHECK 17:39 → JD.OB 18:07 → OBSVTOIN 23:23 → JD.OB 23:23 → JD.MS 23:24 → JD.OB 01-07 15:57
PROVIDERS: ADMIT Obstetrics & Gynecology; ATTEND Obstetrics & Gynecology
PROC: 3E0R3BZ Introduction of Anesthetic Agent into Spinal Canal, Percutaneous Approach (ICD-10-PCS; principal; 2025-01-06)
PROC: 10E0XZZ Delivery of Products of Conception, External Approach (ICD-10-PCS; principal; 2025-01-06)
PROC: 10907ZC Drainage of Amniotic Fluid, Therapeutic from Products of Conception, Via Natural or Artificial Opening (ICD-10-PCS; principal; 2025-01-06)
DX: O48.0 Post-term pregnancy (principal); Z3A.40 40 weeks gestation of pregnancy; Z37.0 Single live birth; Z98.890 Other specified postprocedural states; Z79.899 Other long term (current) drug therapy
CPT/HCPCS: 36415; 51701; 59025; 59409; 85025; 85027; 86592; 86850; 86900; 86901; A9270-GY; C1758; J0665; J3010; J3490; J7120; J7999